=== PATIENT | female | born 1940 ===

== ENCOUNTER 2017-09-07 20:01 | Emergency (ER) | payer OTHER ==
[~2017-09-07] VITALS: Ht 157.5 cm; Wt 65.8 kg
[~2017-09-07 20:01] MED LIST: GLIPIZIDE5 MG; GLUCOPHAGE XR500 MG; HYZAAR 100-251 UDTAB; PROTONIX40 MG PO; TRICOR145 MG; ZOCOR40 MG
[2017-09-08] MEDS ORDERED: ZOFRAN4 MG PO (03:52)
[2017-09-08] MEDS ORDERED: PEPCID40 MG PO (03:52)
== END 2017-09-08 03:53 | disposition home or self-care (01) ==
LOC: ER 20:01
DX: R42 Dizziness and giddiness (principal); E11.65 Type 2 diabetes mellitus with hyperglycemia